=== PATIENT | male | born 2000 | race Two or more races ===

== ENCOUNTER 2022-09-19 22:00 | Emergency (ER) | payer OTHER ==
[~2022-09-19] VITALS: Ht 172.7 cm; Wt 79.1 kg
[2022-09-19] MEDS ORDERED: LIDOCAINE 1% 10 ML VIAL SQ ONE (23:00)
[2022-09-19] MEDS ORDERED: PERTUSS(ACELL),DIPH,TET VAC/PF 0.5 ML SYRINGE IM. ONE (23:00)
[2022-09-19 23:23] VITALS: BP 128/77
== END 2022-09-20 00:42 | disposition home or self-care (01) ==
LOC: EMS 22:15
DX: S61.011A Laceration without foreign body of right thumb without damage to nail, initial encounter (principal); S61.210A Laceration without foreign body of right index finger without damage to nail, initial encounter; F17.210 Nicotine dependence, cigarettes, uncomplicated; W26.0XXA Contact with knife, initial encounter; Y93.89 Activity, other specified; Y92.89 Other specified places as the place of occurrence of the external cause; Y99.8 Other external cause status
CPT/HCPCS: 99283; 90715; 90471; 12001; J3490

== ENCOUNTER 2022-09-25 22:05 | Emergency (ER) | payer OTHER ==
[~2022-09-25] VITALS: Ht 170.2 cm; Wt 68.0 kg
[2022-09-25 22:25] VITALS: BP 129/68
== END 2022-09-25 22:58 | disposition home or self-care (01) ==
LOC: EMS 22:05
DX: S61.409D Unspecified open wound of unspecified hand, subsequent encounter (principal); F17.210 Nicotine dependence, cigarettes, uncomplicated; Z48.02 Encounter for removal of sutures; X58.XXXD Exposure to other specified factors, subsequent encounter
CPT/HCPCS: 99282; Z7502